=== PATIENT | female | born 1975 | race Caucasian/White ===

== ENCOUNTER → 2017-09-04 | Outpatient (CLI) | payer BC ==
--- NOTE | 2017-09-05 05:28 | CONS ---
CONSULTATION REASON FOR CONSULTATION: Consultation for sleep apnea. A 43-year-old, obese female patient who feels tired all the time and she is concerned about sleep apnea. Note that she has undergone back surgery for lumbar disc disease and she underwent a microdiscectomy and laminectomy. Since then, the patient is unable to sleep in her bed all the time because of on and off pain. She prefers to sleep in a recliner. Her has told her that she snores loud and at times she quits breathing in addition. She goes to sleep at around 9 p.m. and it takes her some times a few minutes to fall asleep and she wakes up around 3 a.m. in the morning. Pain seems to be one of the main triggers contributing to her nocturnal arousals. In addition, she has chronic sinus disease, nasal congestion, stuffiness and postnasal drainage, which seems to be allergic in nature for which she has taken antihistamines in form of Zyrtec over the counter. She is obviously a mouth breather. Not evaluated by ENT in the past. Has not had any previous allergy testing. No recent weight gain. Her current [place] score is at 14. No choking sensation or gasping for air in the middle of the night. No nocturia. No grinding of the teeth. No anxiety or panic attacks. No nocturnal heartburn or chest pain. PAST MEDICAL HISTORY: Past medical history includes obesity, hypothyroidism, ADD, RLS and chronic back pain. SURGICAL HISTORY: Surgical history includes microdiscectomy and laminectomy, total hysterectomy and tonsillectomy. DRUG ALLERGIES: Drug allergies are not known. She has however multiple environmental allergies including DUST. She has also allergies to MILK and WHEAT. SOCIAL HISTORY: Nonsmoker. No history of alcohol. No history of IV drugs. FAMILY HISTORY: Negative for sleep apnea. REVIEW OF SYSTEMS: Twelve-point review of system was done and positive findings are mentioned above in the history of present illness. PHYSICAL EXAMINATION: BP is 138/72, pulse 86, respirations 16, temperature 98.0, saturation 97% on room air. Weight is 297. Height is 5 feet 10 inches and BMI is 42.6. Neck size is 15 inches. GENERAL APPEARANCE: Calm, comfortable. No acute distress. Head is atraumatic, normocephalic. Neck is short. There is crowded posterior pharynx. Mallampati class IV. There is no goiter or neck masses. Her nasal passages are quite plugged and she has swelling and bogginess of the turbinates. Lungs are clear to auscultation. HEART: Sounds regular rate and rhythm. Normal S1, S2. No S3, S4. No murmurs. ABDOMEN: Soft, nontender. No organomegaly. EXTREMITIES: No edema. No cyanosis or clubbing. NEUROLOGIC: The patient is oriented x3. There is no focal neurological deficits. PSYCHIATRIC: She has chronic anxiety, yet her mood and affect is appropriate for now. IMPRESSION: 1. Excessive fatigue/sleepiness. [place] Score is 14 currently under investigation. Rule out underlying obstructive sleep apnea. Rule out sleep fragmentation due to other comorbidities including chronic pain. 2. Chronic rhinitis with excessive nasal plugging and the patient is mouth breather post tonsillectomy. 3. Obesity, body mass index is 42.6. 4. Attention-deficit disorder, currently on Adderall 20 mg XR 1 tablet a day. 5. Hypothyroidism. 6. Restless leg syndrome. PLAN: 1. Encourage weight loss. 2. Continue Adderall for now regarding ADD. 3. Encourage the use of Neurontin for symptoms of RLS. 4. Proceed with a screening polysomnogram. This will be done in the bed and the patient will move to recline if she is unable to sleep in a bed. She was able to evaluate our bed and the recliner at the sleep center and she thinks that she is able to sleep for polysomnogram testing. 5. Implement good sleep hygiene measures. 6. May need an ENT evaluation at later stage for allergies and treatment of chronic rhinitis. 7. Will continue to follow. 8. Further recommendations based on the results of the sleep study. MEDICATION LIST: The patient is on levothyroxine 200 mcg p.o. q. day, Adderall XR 20 mg p.o. q. day, Zyrtec 10 mg p.o. q. day, vitamin D 5000 units q. day, hydrochlorothiazide 25 mg p.o. q. day, ibuprofen 800 mg as needed, Neurontin 300 mg as needed. MMODL / IJN: [id number] /
== END | disposition home or self-care (01) ==
LOC: SLEEP 16:35
PROVIDERS: ATTEND Internal Medicine Critical Care Medicine
DX: G25.81 Restless legs syndrome (principal); J31.0 Chronic rhinitis; R53.83 Other fatigue; E66.9 Obesity, unspecified; F98.8 Other specified behavioral and emotional disorders with onset usually occurring in childhood and adolescence; E03.9 Hypothyroidism, unspecified; Z68.42 Body mass index [BMI] 45.0-49.9, adult
CPT/HCPCS: 99211

== ENCOUNTER → 2017-11-21 | Outpatient (CLI) | payer BC ==
[2017-11-21 19:51] LABS: HCT 39.5 % (34.0-46.0); HGB 13.3 gm/dL (11.4-16.0); MCH 29.6 pg (25.0-35.0); MCHC 33.6 g/dL (31.0-37.0); MCV 88.1 fL (80.0-100.0); Mean Platelet Volume 7.5; Platelet Count 331 k/uL (150-450); RBC 4.49 m/uL (3.80-5.40); RDW 13.6 % (11.5-15.5); WBC 6.9 k/uL (3.8-10.6)
[2017-11-21 19:52] LABS: ALT 39 U/L (9-52); AST 27 U/L (14-36); Albumin 4.2 g/dL (3.5-5.0); Alkaline Phosphatase 91 U/L (38-126); Anion Gap 10 mmol/L; Blood Urea Nitrogen 17 mg/dL (7-17); Calcium 10.3 mg/dL (8.4-10.2); Carbon Dioxide 31 mmol/L (22-30); Chloride 104 mmol/L (98-107); Cholesterol 167 mg/dL (<200); Glucose 93 mg/dL (74-99); HDL Cholesterol 41 mg/dL (40-60); LDL Cholesterol,Calculated 108 mg/dL (0-99); Sodium 145 mmol/L (137-145); Total Bilirubin 0.4 mg/dL (0.2-1.3); Total Protein 7.5 g/dL (6.3-8.2); Triglycerides 91 mg/dL (<150)
== END | disposition home or self-care (01) ==
LOC: MMGSC 09:47
PROVIDERS: ATTEND Obstetrics & Gynecology
DX: E03.9 Hypothyroidism, unspecified (principal); Z90.722 Acquired absence of ovaries, bilateral; Z78.0 Asymptomatic menopausal state
CPT/HCPCS: 36415; 80053; 80061; 82306; 82607; 82670; 83001; 84403; 84439; 84443; 85027

== ENCOUNTER → 2020-12-09 | Outpatient (CLI) | payer BC ==
[2020-12-09 20:01] LABS: Basophils # (A) 0.06 X 10*3/uL (0.00-0.10); Basophils % (A) 0.6 %; Eosinophils # (A) 0.34 X 10*3/uL (0.04-0.35); Eosinophils % (A) 3.4 %; HCT 47.1 % (37.2-46.3); HGB 14.8 g/dL (12.0-15.0); Lymphocytes # (A) 2.52 X 10*3/uL (0.90-5.00); Lymphocytes % (A) 25.5 %; MCH 29.9 pg (27.0-32.0); MCHC 31.4 g/dL (32.0-37.0); MCV 95.2 fL (80.0-97.0); Monocytes # (A) 0.81 X 10*3/uL (0.20-1.00); Monocytes % (A) 8.2 %; Neutrophils # (A) 6.13 X 10*3/uL (1.80-7.70); Neutrophils % (A) 61.9 %; Platelet Count 383 X 10*3/uL (140-440); RBC 4.95 X 10*6/uL (4.10-5.20); RDW 13.3 % (11.5-14.5)
[2020-12-09 22:12] LABS: African American GFR (CKD) 103.2 (60.0-200.0); BUN/Creat Ratio 23.75 Ratio (12.00-20.00); Calcium 9.5 mg/dL (8.7-10.3); Chol/HDL Ratio 3.65; LDL Cholesterol,Calculated 106.8 mg/dL (0.0-131.0); Potassium 4.5 mmol/L (3.5-5.5); VLDL Calculation 23.2 mg/dL (5.00-40.00)
[2020-12-09 22:22] LABS: Estradiol 92.4 pg/mL; Follicle Stimulating Hormone 3.6 mIU/mL
== END | disposition home or self-care (01) ==
LOC: LABWHC1 10:38
PROVIDERS: ATTEND Obstetrics & Gynecology
DX: Z00.00 Encounter for general adult medical examination without abnormal findings (principal); E03.9 Hypothyroidism, unspecified; E34.50 Androgen insensitivity syndrome, unspecified; N95.1 Menopausal and female climacteric states; R37 Sexual dysfunction, unspecified; I10 Essential (primary) hypertension
CPT/HCPCS: 36415; 80048; 80061; 82670; 83001; 84144; 84403; 84443; 84481; 85025

== ENCOUNTER 2022-05-17 09:38 | Day surgery (SDC) | payer BC ==
[2022-05-15 14:47] VITALS: BMI 41.5
[~2022-05-17 09:38] MED LIST: DEXAMETHASONE SOD PHOSPHATE 4 MG/ML 1 ML VIAL IV ONE; FAMOTIDINE 20 MG/2 ML VIAL IV PRN; LACTATED RINGERS 1,000 ML IV SCH; LIDOCAINE 1% (10MG/ML) FOR IV START INTRADERMA PRN; ONDANSETRON 4 MG/2 ML VIAL IVP ONE; ceFAZolin 3 GM in SODIUM CHLORIDE 0.9% 100 ML IVPB PRN; metroNIDAZOLE-NS PMX 500 MG in SALINE 1 100ML.BAG IVPB PRN
[2022-05-17] MEDS: OXYMETAZOLINE 0.05% NASL SPRAY 1 SPRAY BOTTLE EA NOSTRIL PRN ×5 (10:12→10:32)
[2022-05-17 10:15] VITALS: TEMP 97.2
[2022-05-17] MEDS ORDERED: SCOPOLAMINE 1 MG/72 HR PATCH TRANSDERM ONE (10:25)
[2022-05-17] MEDS ORDERED: LIDOCAINE 1%-EPI 1:100,000 20 ML VIAL SUBMUCOSAL ONE ×2 (11:35)
[2022-05-17] MEDS ORDERED: MIDAZOLAM 2 MG/2 ML VIAL ONE (11:47)
[2022-05-17] MEDS ORDERED: PROPOFOL 10 MG/ML 20 ML VIAL IV ONE (11:47)
[2022-05-17] MEDS ORDERED: fentaNYL (PF) 50 MCG/ML 2 ML AMP ONE (11:47)
[2022-05-17] MEDS ORDERED: DEXAMETHASONE SOD PHOSPHATE 10 MG/ML 1 ML VIAL ONE (11:47)
[2022-05-17] MEDS ORDERED: SUCCINYLCHOLINE CHLORIDE 200 MG/10 ML VIAL IV ONE (11:47)
[2022-05-17] MEDS ORDERED: LIDOCAINE 2% INJ 20 MG/ML (2 ML VIAL) ONE (11:47)
--- NOTE | 2022-05-17 12:47 | P.OP ---
Date of Procedure: 05/17/22 Preoperative Diagnosis: Deviated nasal septum Inferior turbinate hypertrophy Postoperative Diagnosis: Same Procedure(s) Performed: Septoplasty Outfracture and submucous resection of the inferior turbinates Anesthesia: DAISHAA Surgeon: Melecio Holloway Estimated Blood Loss (ml): 2 Pathology: other Condition: stable Disposition: PACU Indications for Procedure: The 47-year-old white female who has chronic nasal airway obstruction congestion with notable deviated septum and inferior turbinate hypertrophy and not considerably improved with medical management Operative Findings: Nasal septum deviated to the right chiefly however spur of the left posteriorly with inferior turbinate hypertrophy Description of Procedure: DESCRIPTION OF PROCEDURE: The patient was brought to the operative suite, placed in the supine position. The patient underwent induction of general anesthesia with oral endotracheal intubation without difficulty. The patient was prepped and draped in the usual aseptic fashion. 1% lidocaine with 1:100,000 epinephrine was infused submucosally on both sides of the nasal septum. While this was taking vasoconstrictive effect, the inferior turbinates were infractured with a Rusk elevator. Partial submucous resection of the inferior turbinates was performed with Coblation device ablating a portion of the submucosal soft tissue. The inferior turbinates were then outfractured with a [place] elevator. A left hemitransfixion incision was then made through the mucoperichondrial. Mucoperiosteal flap on the left elevated. Bony cartilaginous junction was disarticulated and mucoperiosteal flap on the right was elevated. Bony nasoseptal deformity were removed with Vale forceps and an inferior cartilaginous strip was removed, leaving a full 1.5 cm caudal strut. Checking intranasally, this corrected the nasal septal deformities and the hemitransfixion incision was closed with running 4-0 chromic suture. The bilateral Ornelas airway splints coated in bacitracin ointment were placed in the nasal cavities and sutured transseptally with 4-0 nylon suture. The patient was then suctioned in an orogastric fashion. The patient was allowed to emerge from general anesthesia, having tolerated the procedure well and was extubated in the operating suite, transferred to postoperative recovery area in satisfactory condition.
[2022-05-17] MEDS: HYDROmorphone 0.5 MG/0.5 ML SYRINGE IVP PRN ×2 (13:23→13:57)
[2022-05-17] MEDS ORDERED: LACTATED RINGERS 1,000 ML IV ONE ×2 (13:58)
[2022-05-17] MEDS ORDERED: LABETALOL SYRINGE 5 MG/ML IVP ONE (14:15)
[2022-05-17 14:56] VITALS: RESP 17
[2022-05-17 15:21] VITALS: BP 131/86; PULSE 88
== END 2022-05-17 15:45 | disposition home or self-care (01) ==
LOC: OR 09:38
PROVIDERS: ATTEND Otolaryngology
DX: J34.2 Deviated nasal septum (principal); J34.3 Hypertrophy of nasal turbinates; J44.9 Chronic obstructive pulmonary disease, unspecified; R09.81 Nasal congestion; R06.83 Snoring; F10.99 Alcohol use, unspecified with unspecified alcohol-induced disorder; I10 Essential (primary) hypertension; E07.9 Disorder of thyroid, unspecified; R42 Dizziness and giddiness; J18.9 Pneumonia, unspecified organism; J45.909 Unspecified asthma, uncomplicated; G43.909 Migraine, unspecified, not intractable, without status migrainosus; E66.01 Morbid (severe) obesity due to excess calories; Z68.20 Body mass index [BMI] 20.0-20.9, adult; Z82.3 Family history of stroke; Z82.49 Family history of ischemic heart disease and other diseases of the circulatory system; Z82.61 Family history of arthritis; Z80.3 Family history of malignant neoplasm of breast; Z83.3 Family history of diabetes mellitus; Z83.42 Family history of familial hypercholesterolemia; Z82.62 Family history of osteoporosis; Z90.89 Acquired absence of other organs; Z90.710 Acquired absence of both cervix and uterus; Z98.890 Other specified postprocedural states; Z88.1 Allergy status to other antibiotic agents
CPT/HCPCS: 30520; 30140; 88300; J2250; J0330; J1100 ×2; J2405; J3010; J2704; J1170; J2001

== ENCOUNTER → 2022-11-23 | Outpatient (CLI) | payer BC ==
--- NOTE | 2022-11-24 08:33 | MR ---
EXAMINATION TYPE: MR lumbar spine wo con DATE OF EXAM: 11/23/2022 COMPARISON: Lumbar spine x-ray May 03, 2014 HISTORY: PAIN IN LT HIP AND LEG, FELL 10-28-2022. Radiculopathy per order. TECHNIQUE: Multiplanar, multisequence imaging of the lumbar spine is performed without IV contrast. FINDINGS: Sagittal images of the lumbar spine show vertebral body heights to remain satisfactory. The re is stable and straightened alignment. Multilevel disc desiccation is redemonstrated. There is mode rate disc space narrowing with heterogeneous Modic type II endplate changes at L4-L5 and anterior L5- S1 levels. The conus medullaris is normal in position and signal ending mid L1 level. Axial images at T12-L1 level appear within normal limits. Axial images at L1-L2 level shows mild broad-based disc bulge minimally effacing the anterior thecal sac. Patent bilateral neural foramina. Axial images at L2-L3 level show mild facet arthropathy bilaterally. There is tiny central disc protr usion minimally effaces the anterior thecal sac. Patent bilateral neural foramina. Axial images at L3-L4 level show mild facet arthropathy bilaterally. Axial images at L4-L5 levels show lobulated mild broad disc bulge and mild facet arthropathy bilatera lly. There is some effacement of the left lateral thecal sac. There are foraminal disc protrusion com ponents bilaterally causing mild bilaterally into inferior neural foraminal narrowing. There is some encroachment in close proximity to the central left L5 nerve axial image 7 and sagittal image 6. Axial images at L5-S1 levels with mild facet arthropathy bilaterally. There is focal central disc pro trusion with spinal canal is preserved. Bilateral neural foramina show mild right-sided anterior infe rior neural foraminal narrowing. Paraspinal muscle bulk is maintained. IMPRESSION: Multilevel degenerative change in the lumbar spine as detailed above. Eccentric disc valarie iation left L4-L5 level comes in close proximity to the central left L5 nerve.
== END | disposition home or self-care (01) ==
LOC: RADMRIMAIN 16:05
PROVIDERS: ATTEND Family Medicine
DX: M47.27 Other spondylosis with radiculopathy, lumbosacral region (principal); M51.17 Intervertebral disc disorders with radiculopathy, lumbosacral region; M99.74 Connective tissue and disc stenosis of intervertebral foramina of sacral region
CPT/HCPCS: 72148

== ENCOUNTER → 2023-10-24 | Outpatient (CLI) | payer BC ==
--- NOTE | 2023-10-25 20:48 | MM ---
Reason for Exam: Screening (asymptomatic). Last mammogram was performed 2 year(s) and 1 month(s) ago. Patient History: Menarche at age 12. Patient has no children. Left ovary removed at age 33. Right ovary removed at age 33. Hysterectomy at age 33. Postmenopausal. Maternal grandmother had breast cancer at or over age 50. Risk Values: Norah 5 year model risk: 1.4%. NCI Lifetime model risk: 12.6%. Prior Study Comparison: 11/15/2016 Left Diagnostic Mammogram, [facility] [place]. 11/23/2017 Bilateral Screening Mammogram, [facility] [place]. 04/08/2019 Bilateral Screening Mammogram, [facility] [place]. 09/08/2021 Bilateral Screening Mammogram, [facility] [place] [facility]. Tissue Density: There are scattered fibroglandular densities. Findings: Analyzed By CAD. Unchanged focal asymmetry on the left. There is no suspicious group of microcalcifications or new suspicious mass in either breast. Overall Assessment: Benign, BI-RAD 2 Management: Screening Mammogram of both breasts in 1 year. . Patient should continue monthly self-breast exams. A clinical breast exam by your physician is recommended on an annual basis. This exam should not preclude additional follow-up of suspicious palpable abnormalities. Note on Norah scores and lifetime risk: 1. A Norah score greater than 3% is considered moderate risk. If this is the case, consider specialist referral to assess eligibility for a risk reducing agent. 2. If overall lifetime risk for the development of breast cancer is 20% or higher, the patient may qualify for future screening with alternating mammogram and breast MRI. Electronically signed and approved by: Guillermina Franco M.D. Radiologist
== END | disposition home or self-care (01) ==
LOC: RADMAMWWP 06:49
PROVIDERS: ATTEND Family Medicine
DX: Z12.31 Encounter for screening mammogram for malignant neoplasm of breast (principal); Z78.0 Asymptomatic menopausal state; Z80.3 Family history of malignant neoplasm of breast
CPT/HCPCS: 77063; 77067

== ENCOUNTER → 2025-01-05 | Outpatient (CLI) | payer BC ==
[2025-01-05 10:19] LABS: Basophils # (A) 0.05 X 10*3/uL (0.00-0.10); Basophils % (A) 0.7 %; Eosinophils % (A) 2.7 %; HCT 44.1 % (37.2-46.3); HGB 14.1 g/dL (12.0-15.0); Lymphocytes # (A) 2.07 X 10*3/uL (0.90-5.00); Lymphocytes % (A) 27.5 %; MCH 30.8 pg (27.0-32.0); MCV 96.3 FL (80.0-97.0); Mean Platelet Volume 9.8 FL (9.5-12.2); Monocytes # (A) 0.87 X 10*3/uL (0.20-1.00); Monocytes % (A) 11.6 %; NRBC Per 100 WBC 0 X 10*3/uL (0.00-0.01); Neutrophils % (A) 57.1 %; Platelet Count 365 X 10*3/uL (140-440); RBC 4.58 X 10*6/uL (4.10-5.20); WBC 7.52 X 10*3/uL (4.50-10.00)
[2025-01-05 11:23] LABS: BUN/Creat Ratio 20.75 Ratio (12.00-20.00); Blood Urea Nitrogen 16.6 mg/dL (9.0-27.0); Calcium 9.8 mg/dL (8.7-10.3); Chloride 105 mmol/L (96-109); Glucose 97 mg/dL (70-110); LDL Cholesterol,Calculated 113.9 mg/dL (0.0-131.0); Potassium 4.8 mmol/L (3.5-5.5); Sodium 141 mmol/L (135-145); T4, Free (Free Thyroxine) 1.63 ng/dL (0.80-1.80); VLDL Calculation 12.48 mg/dL (5.00-40.00)
== END | disposition home or self-care (01) ==
LOC: LABWHC1 07:37
PROVIDERS: ATTEND Family Medicine
DX: Z00.00 Encounter for general adult medical examination without abnormal findings (principal); K59.09 Other constipation; I10 Essential (primary) hypertension
CPT/HCPCS: 36415; 80048; 80061; 83036; 84439; 84443; 85025